=== PATIENT | female | born 1955 | race Caucasian/White ===

== ENCOUNTER → 2024-08-19 08:45 | Outpatient (CLI) | payer OTHER, SELFPAY ==
--- NOTE | 2024-08-19 08:49 | DI.NM.S_ITS ---
PROCEDURE: NM BONE SCAN WHOLE BODY RADIOPHARMACEUTICAL: 19.4 mCi Tc-99m MDP IV. INDICATIONS: METASTATIC RENAL CANCER/SEVERE ACUTE RIB PAIN TECHNIQUE: Delayed whole-body scintigrams were obtained approximately 3-4 hours after intravenous injection of radiotracer. Anterior and posterior views were acquired from vertex to feet. Additional left and right oblique views of the chest were obtained. COMPARISON: Outside Film, CT, CT ABDOMEN PELVIS WITH CONTRAST, 05/05/2024, 15:07. Outside Film, CT, CT ANGIO CHEST, 05/05/2024, 15:07. FINDINGS: Radiotracer excretion is seen in the urinary system. Diffuse osseous metastases, with more focal radiotracer uptake in the thoracolumbar spine. Rib uptake, calvarial uptake, pelvic uptake, and bilateral femoral uptake also seen. IMPRESSION: Diffuse osseous metastases, no prior bone scan available for review, but comparing prior CT lesions, burden of disease is probably increased. Weightbearing lesions are at risk of pathologic fracture, particularly in the spine and bilateral femurs. Please note burden of lytic renal metastases can be underestimated by bone scan, which detects osteoblastic activity. Dictated by: Joseph Medrano M.D. on 08/19/2024 at 14:45 Approved by: Joseph Medrano M.D. on 08/19/2024 at 14:47
== END ==
PROVIDERS: PCP Nurse Practitioner Family; Referring Provider Specialist; Visit Provider Specialist
DX: C79.51 Secondary malignant neoplasm of bone (principal); Z85.528 Personal history of other malignant neoplasm of kidney
CPT/HCPCS: 78306; A9503